=== PATIENT | female | born 1965 | race African-American/Black ===

== ENCOUNTER 2016-11-09 07:15 | Day surgery (SDC) | payer OTHER ==
[~2016-11-09] VITALS: Ht 149.9 cm; Wt 55.1 kg
[2016-11-09] VITALS (22 sets, daily range): BP systolic 87–145; BP diastolic 51–68; PULSE 53–74; RESP 12–18; Ht 149.9 cm; Wt 55.1 kg
[~2016-11-09 07:15] MED LIST: ARIP5TAB7 PO; EFAV1TAB4 PO; HYDR-906 PO; HYDR25TA6 PO; IPRA4AER INHALATION; ONDA4TAB8 PO; TRAM50TA2 PO
[2016-11-09] MEDS ORDERED: TIZA4CAP6 PO (08:15)
[2016-11-09] MEDS ORDERED: HYDR-902 PO (08:15)
[2016-11-09] MEDS ORDERED: METO10TA92 PO (08:16)
[2016-11-09] MEDS ORDERED: POLYMYXIN/BACITRACIN 1L IRRIG IRR ONE (08:30)
[2016-11-09] MEDS ORDERED: CEFAZOLIN 1 GM/50 ML (PMX) 50 ML IVPB ONE ×2 (08:30→09:12)
[2016-11-09] MEDS ORDERED: SOD CHLORIDE 0.9% 1,000 ML IV SCH (08:30)
[2016-11-09] MEDS ORDERED: HEPARIN 1000 UNITS/ML 10 ML INJ ONE (09:12)
[2016-11-09] MEDS ORDERED: SOD CHLORIDE 0.9% 500 ML ONE (09:12)
[2016-11-09] MEDS ORDERED: LIDOCAINE 2%/EPI 30 ML INJ ONE (09:12)
[2016-11-09] MEDS ORDERED: MIDAZOLAM 1 MG/ML 2 ML INJ ONE ×2 (09:12→10:10)
[2016-11-09] MEDS ORDERED: FENTAnyl 50 MCG/ML VIAL ONE ×2 (09:12→10:10)
[2016-11-09] MEDS ORDERED: HYDROCODONE/APAP (5/325) TAB PO PRN (11:30)
--- NOTE | 2016-11-09 12:41 | RADRPT ---
PROCEDURE: FLUOROSCOPIC AND ULTRASONOGRAPHIC-GUIDED PLACEMENT OF RIGHT CHEST PORT. CLINICAL INDICATION: History of gallbladder cancer. Venous access for chemotherapy. TECHNIQUE: INTRAPROCEDURE MEDICATIONS: PB antibiotic solution 40 cc applied topically. 1 gram Ancef intravenous ly, intra-op. IV Versed and Fentanyl per protocol. Informed consent was obtained. The procedure, risks, benefits, complications and alternatives were explained to the patient. Risks including bleeding, infection, and pneumothorax were explained. The patient understood and was willing to proceed. A procedural pause was performed. The patient's name , date of , and procedure to be performed were verified. The central line was inserted with al l elements of maximal sterile barrier technique. All of the following were used: head covering, faci al mask, sterile gown, sterile gloves, a large sterile sheet, hand hygiene, and 2% chlorhexidine fo r cutaneous antisepsis. The right neck and anterior/superior chest wall were prepped and draped in usual sterile fashion. Limited sonography of the right neck was then performed. Noted is a patent right internal jugular ve in. Following the local injection of 1% lidocaine, the right internal jugular vein was punctured under s onographic guidance with a 20-gauge needle through which a 0.018 inch floppy tip guidewire was advan jailyn into the superior vena cava with fluoroscopic guidance. The tract was dilated to 5 [place] and the wire was then replaced with a 0.035 in Amplatz guidewire. Serial dilatation was then performed and a 7 [place]an peel away sheath was introduced. A site just inferior to the clavicle in the superior anterior right chest wall was localized. One pe rcent lidocaine was used as local anesthesia. A transverse 2.5 cm incision was made utilizing a 15 b lade scalpel. Utilizing blunt dissection a subcutaneous pocket was created inferior to the incision. The cavity was flushed with approximately 40 cc of PB antibiotic solution. The catheter was tunneled underneath the skin from the newly created pocket to the puncture site in the neck. The central line catheter was pulled through the tract. The catheter was then advanced thr ough the sheath until the tip was positioned in the right atrium. The peel-away sheath was removed. The catheter was flushed and clamped. The 6.6 [place]an catheter was then connected to the Angiodynamics power port. The port was then placed into the pocket. Prior to closing the instrument and sponge count was verified and was correct. The subcutaneous tissue was closed with 3-0 Vicryl interrupted suture. The skin at the site of the pock et and in the neck was closed with 4-0 Vicryl suture in a running subcuticular technique. The port w as flushed with 1500 units of heparin in 1.5 cc utilizing a Brown needle. The needle was removed. A dressing was applied. The patient tolerated procedure well. COMPARISON: None. FINDINGS: Ultrasound images were recorded and stored in the patient's medical record. Final radiographic images demonstrate the tip of the catheter in the upper right atrium. A total of 0.4 minutes of fluoroscopy time was used. 7 images were obtained with the image intensifier. The ultrasound images demonstrate the needle entering the internal jugular vein. IMPRESSION: 1. Successful ultrasonographic and fluoroscopic guided placement of right chest power port. RPTAT: QQ .Jorge Mccoy MD, MD Date Time Electronically viewed and signed by .Jorge Mccoy MD, on 11/09/2016 12:41 .R/
--- NOTE | 2016-11-09 12:41 | RADRPT ---
PROCEDURE: Ultrasound guidance for placement of needle in right internal jugular vein. CLINICAL INDICATION: Venous access. TECHNIQUE: Prior to the procedure, informed consent was obtained. Risks including bleeding, infection, and pneu mothorax were explained to the patient. The patient understood and was willing to proceed. A procedu ral pause was performed. The patient's name, date of , and procedure to be performed were verif ied. The central line was inserted with all elements of maximal sterile barrier technique. All of th e following were used: head covering, facial mask, sterile gown, sterile gloves, a large sterile she et, hand hygiene, and 2% chlorhexidine for cutaneous antisepsis. The right neck and anterior/super ior chest wall was prepped and draped in usual sterile fashion. Limited sonography of the right neck was then performed. Noted is a patent right internal jugular ve in. Ultrasound images were recorded and stored in the patient's medical record. Following the local injection of Xylocaine, the right internal jugular vein was punctured under sono graphic guidance with a 20-gauge needle through which a 0.018 inch floppy tip guidewire was advanced into the superior vena cava. The patient tolerated the procedure well. The remainder of the proce dure was performed and dictated under separate cover. COMPARISON: None. FINDINGS: The ultrasound images demonstrate a patent right internal jugular vein. The subsequent images demon strate the needle entering the right internal jugular vein. IMPRESSION: 1. Ultrasound guidance for a needle placement in right internal jugular vein. RPTAT: QQ .Jorge Mccoy MD, Date Time Electronically viewed and signed by .Jorge Mccoy MD, on 11/09/2016 12:41 .R/
== END 2016-11-09 14:00 | disposition home or self-care (01) ==
LOC: SDS 07:15
PROVIDERS: ATTEND Internal Medicine Hematology & Oncology
DX: C23 Malignant neoplasm of gallbladder (principal); I10 Essential (primary) hypertension
CPT/HCPCS: 36561; 76942; C1788; J0690; J1644; J2250; J3010; J7040; Z7610

== ENCOUNTER 2017-01-26 13:04 | Emergency (ER) | payer OTHER ==
[~2017-01-26] VITALS: Ht 149.9 cm; Wt 47.0 kg
[~2017-01-26 13:04] MED LIST changes: -ARIP5TAB7 PO; +HYDR-902 PO; -HYDR-906 PO; -HYDR25TA6 PO; +METO10TA92 PO; +TIZA4CAP6 PO
[2017-01-26 13:06] VITALS: Ht 149.9 cm; Wt 47.0 kg
[2017-01-26] MEDS ORDERED: SOD CHLORIDE 0.9% 250 ML IV ONE (13:47)
[2017-01-26] MEDS ORDERED: HALOPERIDOL 5 MG INJ ONE (13:49)
[2017-01-26] MEDS ORDERED: LORAZEPAM 2 MG INJ ONE (13:49)
[2017-01-26] MEDS ORDERED: ONDANSETRON (ODT) 4 MG TAB ODT STA (13:51)
[2017-01-26] MEDS ORDERED: HYDROCODONE/APAP (10/325) TAB PO ONE (14:00)
[2017-01-26 14:27] LABS: ABNORMAL IP MESSAGE 1; HEMATOCRIT 22.5 % (37.0-47.0); HEMOGLOBIN 7.6 g/dl (12.0-16.0); MEAN CORPUSCULAR HEMOGLOBIN 31.8 pg (29.0-33.0); MEAN CORPUSCULAR HGB CONC 33.8 g/dl (32.0-37.0); MEAN CORPUSCULAR VOLUME 94.1 fl (82.0-101.0); RED BLOOD COUNT 2.39 10^6/ul (4.20-5.40); RED CELL DISTRIBUTION WIDTH 17.5 % (11.5-14.5); WHITE BLOOD COUNT 9.2 10^3/ul (4.8-10.8)
[2017-01-26 14:30] LABS: MEAN PLATELET VOLUME 10.4 fl (7.4-10.4); PLATELET COUNT 26 10^3/UL (140-415); POSITIVE DIFF @See below
[2017-01-26 14:35] LABS: CALCIUM 8.4 mg/dl (8.4-10.2); CREATININE 0.71 mg/dl (0.44-1.00); POTASSIUM 3.7 mmol/L (3.5-5.1)
[2017-01-26 15:30] LABS: EOSINOPHILS # 0.1 10^3/ul (0.0-0.5); EOSINOPHILS % (M) 1 % (0.0-7.0); LYMPHOCYTES # 3.8 10^3/ul (0.8-2.9); MONOCYTE # 0.6 10^3/ul (0.3-0.9); MONOCYTES % (M) 6 % (0-11)
[2017-01-26] MEDS ORDERED: DEXAMETHASONE 10 MG/ML 1 ML INJ IV ONE (15:30)
[2017-01-26] MEDS ORDERED: DIPHENHYDRAMINE 50 MG INJ IV ONE (15:30)
--- NOTE | 2017-01-26 15:34 | ERD ---
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 The patient has intermittent thrombocytopenia. Her platelets were 38,000 from her oncologist office and she was sent to the emergency room to receive transfusion of platelets. She denies any spontaneous bleeding. No falls or head trauma. No fevers or chills. She has no other complaints currently. ROS All systems reviewed and are negative except as per history of present illness. Medications Home Meds Reported Medications Metoclopramide* (Reglan*) 10 Mg Tablet, 10 MG PO BID WITH MEALS, TAB 11/09/16 Hydrocodone/Acetaminophen (Spruce 10-325 Tablet) 1 Each Tablet, 1 EACH PO QID Y for PAIN, TAB 11/09/16 Tizanidine Hcl* (Tizanidine Hcl*) 4 Mg Capsule, 4 MG PO BID Y for SPASTICITY, CAP 11/09/16 Ondansetron Hcl* (Zofran*) 4 Mg Tablet, 4 MG PO Q6H Y for NAUSEA AND OR VOMITING , TAB 12/04/15 Albuterol/Ipratropium* (Combivent Respimat*) 20-100 Mcg/Inh - 4 Gm Aer.w.adap, 1 PUFF INHALATION QID, #1 INHALER 12/04/15 Tramadol HCl (Tramadol HCl) 50 Mg Tablet, 50 MG PO BID, #60 TAB 12/04/15 Gduhyfuxn-Rgaiutxewmpud-Nrruawius (Atripla) 600-200-300 Mg Tablet, 1 TAB PO DAILY, TAB 12/04/15 Allergies Allergies: Coded Allergies: No Known Drug Allergies (Verified Allergy, Unknown, 11/09/16) meperidine (Verified Adverse Reaction, Unknown, VOMITTING, 11/09/16) morphine (Verified Adverse Reaction, Unknown, VOMITTING, 11/09/16) PMhx/Soc History of Surgery: Yes (CHOLECYSTECTOMY) Anesthesia Reaction: No Hx Neurological Disorder: No Hx Respiratory Disorders: Yes (COPD) Hx Cardiac Disorders: Yes (HTN) Hx Psychiatric Problems: No Hx Miscellaneous Medical Probl: Yes (PORTACATH PLACEMENT, CANCER) Hx Alcohol Use: No Hx Substance Use: No Hx Tobacco Use: Yes Smoking Status: Former smoker FmHx Family History: No diabetes Physical Exam Vitals Vital Signs Date Time Temp Pulse Resp B/P Pulse Ox O2 Delivery O2 Flow Rate FiO2 01/26/17 13:06 97.4 72 18 154/70 100 Physical Exam General: Well developed, well nourished, no acute distress Head: Normocephalic, atraumatic Eyes: Pupils equally reactive, EOM intact ENT: Moist mucous membranes Neck: Supple, no lymphadenopathy Respiratory: Lungs clear bilaterally, no distress Cardiovascular: RRR, no murmurs, rubs, or gallops Abdominal: Soft, non-tender, non-distended, no peritoneal signs : Deferred MSK: No edema, no unilateral swelling, 5/5 strength Neurologic: Alert and oriented, moving all extremities, normal speech, no focal weakness, no cerebellar signs Skin: No rash Psych: Normal mood Result Diagram: 01/26/17 1400 01/26/17 1400 Results 24 hrs Laboratory Tests Test 01/26/17 14:00 White Blood Count 9.210^3/ul Red Blood Count 2.3910^6/ul Hemoglobin 7.6g/dl Hematocrit 22.5% Mean Corpuscular Volume 94.1fl Mean Corpuscular Hemoglobin 31.8pg Mean Corpuscular Hemoglobin Concent 33.8g/dl Red Cell Distribution Width 17.5% Platelet Count 2610^3/UL Mean Platelet Volume 10.4fl Neutrophils % % Segmented Neutrophils % (Manual) 50% Band Neutrophils % (Manual) 2% Lymphocytes % % Lymphocytes % (Manual) 41% Monocytes % % Monocytes % (Manual) 6% Eosinophils % % Eosinophils % (Manual) 1% Basophils % % Nucleated Red Blood Cells % 0.0/100WBC Neutrophils # (Manual) 4.610^3/ul Band Neutrophils # 0.110^3/ul Absolute Lymphocytes (Manual) 3.710^3/ul Lymphocytes # 3.810^3/ul Monocytes # 0.610^3/ul Absolute Monocytes (Manual) 0.510^3/ul Eosinophils # 0.110^3/ul Basophils # 10^3/ul Nucleated Red Blood Cells # 10^3/ul Sodium Level 134mmol/L Potassium Level 3.7mmol/L Chloride Level 103mmol/L Carbon Dioxide Level 28mmol/L Anion Gap 7 Blood Urea Nitrogen 8mg/dl Creatinine 0.71mg/dl Glucose Level 96mg/dl Calcium Level 8.4mg/dl Current Medications Medications (Trade) Dose Ordered Sig/Cici Route PRN Reason Start Time Stop Time Status Last Admin Dose Admin Sodium Chloride (NS) 250 ml @ 0 mls/hr Q0M ONCE IV 01/26/17 13:47 01/26/17 13:48 DC Haloperidol (Haldol) 5 mg STK-MED ONCE .ROUTE 01/26/17 13:49 01/26/17 13:50 DC Lorazepam (Ativan) 2 mg STK-MED ONCE .ROUTE 01/26/17 13:49 01/26/17 13:50 DC Acetaminophen/ Hydrocodone Bitart (Spruce (10/325)) 1 tab ONCE ONCE PO 01/26/17 14:00 01/26/17 14:01 DC 01/26/17 14:33 Ondansetron HCl (Zofran Odt) 4 mg ONCE STAT ODT 01/26/17 13:51 01/26/17 13:52 DC 01/26/17 14:33 Diphenhydramine HCl (Benadryl) 50 mg ONCE ONCE IV 01/26/17 15:30 01/26/17 15:32 DC Dexamethasone (Decadron) 10 mg ONCE ONCE IV 01/26/17 15:30 01/26/17 15:32 DC Procedures/MDM LAB INTERPRETATION: Thrombocytopenia noted MEDICAL DECISION MAKING: The patient presents for transfusion of platelets secondary to thrombocytopenia secondary to chemotherapy. She presents for transfusion from her oncologist. No si/sx of spontaneous bleeding. ER COURSE: The patient's oncologist wished that she received Benadryl and Decadron prior to transfusion. The patient was given platelets per protocol recommended over 30 minutes. The patient does not warrant inpatient hospitalization and has no evidence of spontaneous hemorrhage. She needs to follow-up with her oncologist for chemotherapy during next round. I discussed with the patient and/or family the risks, benefits, alternatives of blood transfusion. This includes allergic reaction and infections including HIV and hepatitis. The patient and/or family were able to verbalize these risks , stated understanding. A document has been signed and placed in the chart. The patient was observed for transfusion reaction after transfusion and remained well-appearing. I kept the patient and/or family informed of laboratory and diagnostic imaging results throughout the emergency room course. DISPOSITION PLAN: We discussed follow up with the patient's primary care doctor within 24 to 48 hours as needed. We also discussed return to the emergency room for worsening symptoms or worsening condition. Outpatient referral: [None required] Departure Diagnosis: Primary Impression: Gallbladder cancer Additional Impression: Thrombocytopenia Condition: Stable CRISTOFER MARAVILLA MD Jan 26, 2017 15:34
[2017-01-26] MEDS ORDERED: HEPARIN (100 UNITS/ML) 5 ML SYG CATHETER ONE (18:30)
[2017-01-26 19:40] VITALS: BP 147/88; PULSE 72; RESP 17; TEMP 98.8
== END 2017-01-26 19:43 | disposition home or self-care (01) ==
LOC: E/R 13:04
DX: C23 Malignant neoplasm of gallbladder (principal); D69.6 Thrombocytopenia, unspecified; I10 Essential (primary) hypertension; J44.9 Chronic obstructive pulmonary disease, unspecified; Z87.891 Personal history of nicotine dependence
CPT/HCPCS: 36415; 36430; 80048; 85025; 86850; 86900; 86901; J1100; J1200; J1630; J1642; J2060; J7040; P9035; Z7502; Z7610